=== PATIENT | female | born 1940 | race American Indian/Alaskan Native ===

== ENCOUNTER 2017-11-26 11:49 | Outpatient (CLI) | payer MEDICARE ==
--- NOTE | 2017-11-26 13:29 | Cat Scan Report ---
CT CHEST WITHOUT CONTRAST: 11/26/17 11:49:00 CLINICAL: Abnormal chest x-ray. No images for comparison. TECHNIQUE: Volumetric acquisition and 1.25 mm axial scan reconstructions without contrast. FINDINGS: Numerous bilateral multilobar pleural plaques without and with calcification. The largest is in the upper lobe on the left, is associated with ribs 4 and 5 and measures approximately 6.1 in length x 1.3 cm thickness. A calcified plaque at the right hemidiaphragm. No pleural effusion. No pulmonary nodule or mass. Moderate bilateral multilobar multifocal intralobular septal thickening associated with pleural plaques. Mild multilobar tubular bronchiectasis. The heart is normal size with coronary artery calcifications. Moderate calcification of the aorta. The pulmonary arteries are relatively large. Normal thyroid, trachea and esophagus. The upper abdomen is unremarkable. Degenerative changes in the spine. No suspicious bone lesions. IMPRESSION: 1. Bilateral multilobar pleural plaques which are typical of asbestos exposure and asbestos-related pleural disease. 2. Mild associated interstitial fibrotic changes. 3. No suspicion of tumor. However, the sensitivity of this on examination for detecting tumor is somewhat reduced without IV contrast. Consider followup CT chest without and with contrast in six months.
== END 2017-11-26 11:50 | disposition home or self-care (01) ==
LOC: SPVIMAG 11:49
PROVIDERS: ATTEND Internal Medicine
DX: J47.9 Bronchiectasis, uncomplicated (principal); J92.0 Pleural plaque with presence of asbestos; I25.10 Atherosclerotic heart disease of native coronary artery without angina pectoris; I70.0 Atherosclerosis of aorta; M47.894 Other spondylosis, thoracic region; R93.8 Abnormal findings on diagnostic imaging of other specified body structures
CPT/HCPCS: 71250